=== PATIENT | female | born 1990 | race African-American/Black ===

== ENCOUNTER 2018-10-09 17:55 | Emergency (ER) | payer OTHER ==
[~2018-10-09] VITALS: Ht 172.7 cm; Wt 127.0 kg
--- NOTE | 2018-10-09 17:56 | NUR ---
Attempted to triage pt, pt was not found in ER waiting room or outside ER.
--- NOTE | 2018-10-09 18:32 | NUR ---
Urine cup was provided & urine specimen was requested from patient.
[2018-10-09 19:17] LABS: BASOPHILS % (AUTO) 0.6 % (0.0-2.0); EOSINOPHILS # (AUTO) 0.2 K/uL (0.0-0.7); EOSINOPHILS % (AUTO) 3.8 % (0.0-7.0); HEMATOCRIT 35.6 % (31.2-41.9); HEMOGLOBIN 11.8 g/dL (10.9-14.3); LYMPHOCYTES # (AUTO) 1.4 K/uL (20.0-40.0); LYMPHOCYTES % (AUTO) 23.8 % (20.5-51.5); MEAN CORPUSCULAR HEMOGLOBIN 28.6 uug (24.7-32.8); MEAN CORPUSCULAR HGB CONC 33 g/dL (32.3-35.6); MEAN CORPUSCULAR VOLUME 86.3 fL (75.5-95.3); MONOCYTES # (AUTO) 0.4 K/uL (2.0-10.0); MONOCYTES % (AUTO) 7.3 % (0.0-11.0); NEUTROPHILS # (AUTO) 3.7 K/uL (1.8-8.9); NEUTROPHILS % (AUTO) 64.5 % (38.5-71.5); PLATELET COUNT (AUTO) 292 K/uL (179-408); RED BLOOD CELL COUNT(AUTO) 4.13 MIL/uL (3.63-4.92); WHITE BLOOD COUNT (AUTO) 5.8 K/uL (3.8-11.8)
--- NOTE | 2018-10-09 19:20 | NUR ---
Received report from Nimo, assumed care of pt., pt. here for SI - does not have a plan, is homeless, A/Ox4, mumbles sentences quietly and avoids eye contact, RR even/unlabored, pt. is in gown, belonings taken from room and held at nursing station, given 2 cups of water to assist w/ urine specimen, security at bedside,
[2018-10-09 19:27] LABS: CARBON DIOXIDE 24 mmol/L (21-32); CHLORIDE 102 mmol/L (98-107); CREATININE 0.7 mg/dL (0.6-1.3); GLUCOSE 76 mg/dL (74-106); POTASSIUM 3.1 mmol/L (3.5-5.1); UREA NITROGEN, BLOOD 7 mg/dL (7-18)
[2018-10-09 19:30] LABS: ETHANOL < 3 MG/DL (0-0)
[2018-10-09 19:33] LABS: ALANINE AMINOTRANSFERASE 19 U/L (14-59); ALKALINE PHOSPHATASE 66 U/L (50-136); ASPARTATE AMINOTRANSFERASE 17 U/L (15-37); BILIRUBIN,DIRECT 0.2 mg/dL (0.0-0.2); BILIRUBIN,TOTAL 0.8 mg/dL (0.2-1.0); TOTAL PROTEIN, SERUM 7.4 g/dL (6.4-8.2)
[2018-10-09 19:35] LABS: ACETAMINOPHEN < 2.0 ug/mL (10-30)
--- NOTE | 2018-10-09 19:39 | NUR ---
Pt. up to use restroom - ambulates w/ steady gait, urine specimen collected and sent to lab,
[2018-10-09 19:44] LABS: *BILIRUBIN,URIN 1+ (NEGATIVE); *BLOOD, URINE 1+ (NEGATIVE); *CLARITY,URINE SLIGHTLY CLOUDY (CLEAR); *COLOR,URINE DARK YELLOW (YELLOW); *KETONES,URINE TRACE (NEGATIVE); *URINE HCG, QUAL NEGATIVE (NEGATIVE); LEUKOCYTE ESTERASE ,URINE TRACE (NEGATIVE); NITRITE, URINE NEGATIVE (NEGATIVE); PH,URINE 5.5 (5.0-8.0); UGLUCOSE NEGATIVE (NEGATIVE)
[2018-10-09 19:45] LABS: THYROID STIMULATING HORMONE 0.661 mIU/mL (0.358-3.740)
--- NOTE | 2018-10-09 19:50 | NUR ---
Called Pinky [facility],
[2018-10-09 19:51] LABS: BACTERIA,URINE FEW /HPF (NONE SEEN); WBC,URINE 20-50 /HPF (0-3)
[2018-10-09 19:52] LABS: MUCUS,URINE MANY /LPF (0-FEW); SQUAMOUS EPITHELIAL CELL,UR MODERATE /HPF (NONE SEEN)
[2018-10-09] MEDS ORDERED: POTASSIUM CHLORIDE 20 MEQ TAB.PRT.SR ONE (19:59)
[2018-10-09] MEDS ORDERED: POTASSIUM CHLORIDE 20 MEQ TAB.PRT.SR PO ONE (20:00)
--- NOTE | 2018-10-09 20:00 | NUR ---
Pt. given tray of food,
[2018-10-09 20:57] LABS: *AMPHETAMINE, URINE POSITIVE (NEGATIVE); *BARBITURATE, URINE NEGATIVE (NEGATIVE); *CANNABINOID, URINE POSITIVE (NEGATIVE); *COCCAINE, URINE NEGATIVE (NEGATIVE); *OPIATE, URINE NEGATIVE (NEGATIVE); *PHENCYCLIDINE SCREEN,URINE NEGATIVE (NEGATIVE)
--- NOTE | 2018-10-09 21:09 | NUR ---
Pinky RN at bedside,
--- NOTE | 2018-10-09 21:20 | NUR ---
Pt. became agitated, hostile and aggressive towards staff, banging mosley and furniture/equipment in the room - nick latham called,
--- NOTE | 2018-10-09 21:32 | NUR ---
Patient given written and verbal discharge instructions. Patient verbalizes understanding of instructions. Patient is ambulatory with steady gait. Refuses offer of custodial placement. Patient given list of available shelters in surrounding area. Pt. refused to sign d/c papers, ambulated off unit w/ steady gait, all belongings taken, ID band removed,
== END 2018-10-09 21:35 | disposition home or self-care (01) ==
LOC: ER 17:57
DX: F32.9 Major depressive disorder, single episode, unspecified (principal); F15.10 Other stimulant abuse, uncomplicated; F17.200 Nicotine dependence, unspecified, uncomplicated; R45.851 Suicidal ideations; Z59.0 Homelessness
CPT/HCPCS: 36415; 80048; 80076; 80307; 81001; 84443; 84703; 85025; 99284; G0480 ×2; G0481; A4663